=== PATIENT | female | born 1935 | race Caucasian/White ===

== ENCOUNTER 2016-05-08 20:47 | Emergency (ER) | payer OTHER ==
[~2016-05-08] VITALS: Ht 165.1 cm; Wt 70.0 kg
[~2016-05-08 20:47] MED LIST: EXEN5PEN SQ; FISH1000 PO; FLAXOIL; GLUCTAB PO; LEUTIN PO; LEVEMIR SQ; LOFI134C PO; METO100T PO; OXYC-360 PO; STOO100C PO; TAB-TAB PO; VITA100017 PO
[2016-05-08 20:50] VITALS: BP 151/66; PULSE 74; RESP 20; TEMP 98; O2SAT 97
[2016-05-08] MEDS ORDERED: ASPI81TA81 PO (21:05)
[2016-05-08] MEDS ORDERED: MULT1TAB46 PO (21:05)
[2016-05-08] MEDS ORDERED: NOVO7030P2 SQ (21:05)
[2016-05-08] MEDS ORDERED: NOVORP2 SQ (21:05)
[2016-05-08] MEDS ORDERED: CALC500T17 PO (21:05)
[2016-05-08] MEDS ORDERED: [UNRECOGNIZED DRUG - CODE] PO (21:05)
[2016-05-08] MEDS ORDERED: ENAL20TA PO (21:05)
[2016-05-08] MEDS ORDERED: ATOR20TA15 PO (21:06)
[2016-05-08] MEDS ORDERED: LATA0.002 EACH EYE (21:06)
[2016-05-08] MEDS ORDERED: TRAM50TA PO (21:06)
[2016-05-08] MEDS ORDERED: EYECAP PO (21:06)
[2016-05-08] MEDS ORDERED: MORPHINE SULFATE 4 MG/ML INJ IV PUSH ONE ×2 (21:30→23:00)
--- NOTE | 2016-05-08 22:17 | RADRPT ---
EXAM DATE/TIME: 05/08/2016 21:32 [facility] COMPARISON: No previous studies available for comparison. INDICATIONS : Trip and fall today; laceration to left forehead. RADIATION DOSE: 56.35 CTDIvol (mGy) MEDICAL HISTORY : Hypertension. Endometrial cancer. SURGICAL HISTORY : None. ENCOUNTER: Initial ACUITY: 1 day PAIN SCALE: 5/10 LOCATION: Left cranial TECHNIQUE: Multiple contiguous axial images were obtained of the head. Using automated exposure control and adj ustment of the mA and/or kV according to patient size, radiation dose was kept as low as reasonably a chievable to obtain optimal diagnostic quality images. FINDINGS: CEREBRUM: The ventricles are normal for age. No evidence of midline shift, mass lesion, hemorrhage or acute in farction. No extra-axial fluid collections are seen. POSTERIOR FOSSA: The cerebellum and brainstem are intact. The 4th ventricle is midline. The cerebellopontine angle i s unremarkable. EXTRACRANIAL: The visualized portion of the orbits is intact. SKULL: The calvaria is intact. No evidence of skull fracture. CONCLUSION: 1. No acute findings. Mild chronic white matter ischemic changes. Dev Ball MD on May 08, 2016 at 22:14 Board Certified Radiologist. This report was verified electronically.
--- NOTE | 2016-05-08 22:57 | RADRPT ---
EXAM DATE/TIME: 05/08/2016 21:44 [facility] COMPARISON: No previous studies available for comparison. INDICATIONS : Left hip pain post fall from standing height today MEDICAL HISTORY : None. SURGICAL HISTORY : None. ENCOUNTER: Initial ACUITY: 1 day PAIN SCORE: 5/10 LOCATION: Left entire hip FINDINGS: Examination of the left hip was performed with AP Pelvis. The primary and secondary trabecular patte rn of the femoral neck is intact. The hip joint is of normal width without significant sclerosis or bony hypertrophy. The acetabulum is grossly intact. CONCLUSION: 1. No acute findings. 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 Dev Ball MD on May 08, 2016 at 22:54 Board Certified Radiologist. This report was verified electronically.
--- NOTE | 2016-05-08 22:57 | RADRPT ---
EXAM DATE/TIME: 05/08/2016 21:46 [facility] COMPARISON: No previous studies available for comparison. INDICATIONS : Left shoulder pain post fall from standing height today MEDICAL HISTORY : None. SURGICAL HISTORY : None. ENCOUNTER: Initial ACUITY: 1 day PAIN SCORE: 10/10 LOCATION: Left shoulder FINDINGS: There is a mildly displaced comminuted fracture of the humeral neck extending into the humeral head a nd greater tuberosity. No dislocation. CONCLUSION: 1. Mildly comminuted and displaced proximal left humeral fracture without dislocation. Dev Ball MD on May 08, 2016 at 22:55 Board Certified Radiologist. This report was verified electronically.
--- NOTE | 2016-05-08 22:58 | RADRPT ---
EXAM DATE/TIME: 05/08/2016 21:50 [facility] COMPARISON: No previous studies available for comparison. INDICATIONS : Left proximal humerus pain post fall from standing height today MEDICAL HISTORY : None. SURGICAL HISTORY : None. ENCOUNTER: Initial ACUITY: 1 day PAIN SCORE: 10/10 LOCATION: Left proximal humerus FINDINGS: There is a mildly comminuted and displaced proximal left humeral fracture without dislocation. Mid an d distal humerus intact. CONCLUSION: 1. Proximal humeral fracture as above without dislocation. Dev Ball MD on May 08, 2016 at 22:56 Board Certified Radiologist. This report was verified electronically.
--- NOTE | 2016-05-08 22:59 | RADRPT ---
EXAM DATE/TIME: 05/08/2016 21:50 [facility] COMPARISON: No previous studies available for comparison. INDICATIONS : Left elbow pain post fall from standing height today MEDICAL HISTORY : None. SURGICAL HISTORY : None. ENCOUNTER: Initial ACUITY: 1 day PAIN SCORE: 10/10 LOCATION: Left entire elbow FINDINGS: Two view examination of the left elbow demonstrates no soft tissue swelling, joint effusion, fracture or dislocation. Bony mineralization is normal. CONCLUSION: 1. No acute findings. Dev Ball MD on May 08, 2016 at 22:57 Board Certified Radiologist. This report was verified electronically.
--- NOTE | 2016-05-08 23:01 | RADRPT ---
EXAM DATE/TIME: 05/08/2016 22:06 [facility] COMPARISON: No previous studies available for comparison. INDICATIONS : Trauma to right wrist post fall from standing height today MEDICAL HISTORY : None. SURGICAL HISTORY : None. ENCOUNTER: Initial ACUITY: 1 day PAIN SCORE: 0/10 LOCATION: Right wrist FINDINGS: Three view examination of the right wrist demonstrates no soft tissue swelling, dislocation, or fract ure. The carpal bones are in normal alignment. The joint spaces are maintained. Bony mineralizatio n is normal. CONCLUSION: Normal examination for a patient of this age. Dev Ball MD on May 08, 2016 at 22:59 Board Certified Radiologist. This report was verified electronically.
--- NOTE | 2016-05-08 23:05 | RADRPT ---
EXAM DATE/TIME: 05/08/2016 22:53 [facility] COMPARISON: No previous studies available for comparison. INDICATIONS : Left wrist pain post fall from standing height today MEDICAL HISTORY : None. SURGICAL HISTORY : None. ENCOUNTER: Initial ACUITY: 1 day PAIN SCORE: 7/10 LOCATION: Left entire wrist FINDINGS: There is a minimally displaced fracture of the radial styloid and a possible hairline nondisplaced in tra-articular fracture of the radius best seen on the lateral view. Distal ulna intact. No dislocatio n. CONCLUSION: 1. Minimally displaced radial styloid fracture with probable associated intra-articular fracture of t he distal radius that is nondisplaced. No dislocation. Dev Ball MD on May 08, 2016 at 23:02 Board Certified Radiologist. This report was verified electronically.
[2016-05-08] MEDS ORDERED: LIDOCAINE 1%/EPINEPHrine 1:100,000 SOLN 20 ML VIAL INFIL ONE (23:45)
[2016-05-09] MEDS ORDERED: MORPHINE SULFATE 4 MG/ML INJ IV PUSH ONE (00:45)
--- NOTE | 2016-05-09 00:57 | PD ---
HPI Chief Complaint: Fall Time Seen by Provider: 21:20 Travel History International Travel<30 days: No Contact w/Intl Traveler<30days: No Traveled to known affect area: No History of Present Illness HPI This is a 80-year-old female who presents to the emergency department having had a mechanical fall she was walking outside. She hit her head on the concrete. She did not lose consciousness but she does have a headache, moderate severity, constant, throbbing. She also reports severe pain to her left arm, worse with moving, improved with rest. She thinks she broke her left humerus in the remote past. PFSH Past Medical History Blood Disorders: No Anxiety: No Depression: No Heart Rhythm Problems: Yes (DURING ANESTHESIA) Cancer: Yes (ENDOMETRIAL) Cardiovascular Problems: Yes Chemotherapy: No Diabetes: Yes Patient Takes Glucophage: Yes Endocrine: Yes Genitourinary: No Hypertension: Yes Immune Disorder: No Musculoskeletal: No Neurologic: Yes Psychiatric: No Reproductive: No Respiratory: No Immunizations Current: Yes Radiation Therapy: No Thyroid Disease: No Tetanus Vaccination: Unknown Influenza Vaccination: Yes ?: Not Past Surgical History Abdominal Surgery: Yes (APPY,HERNIA BILAT INGUINAL) Appendectomy: Yes Gynecologic Surgery: Yes (TUBAL LIGATION) Hysterectomy: Yes Oral Surgery: Yes (T&A) Tonsillectomy: Yes Other Surgery: Yes Social History Alcohol Use: Yes (OCC) Tobacco Use: No Substance Use: No Allergies-Medications (Allergen,Severity, Reaction): Coded Allergies: No Known Allergies (Verified , 05/08/16) Reported Meds & Prescriptions Reported Meds & Active Scripts Active Reported Atorvastatin (Atorvastatin Calcium) 20 Mg Tab 20 Mg PO HS Tramadol (Tramadol HCl) 50 Mg Tab 50 Mg PO Q6H PRN Latanoprost Opth Drops (Latanoprost) 0.005% Drops 1 Drop EACH EYE HS Refrigerate until opened. Eye Vitamins (Multiple Vitamins W/ Minerals) 1 Cap 1 Cap PO BID Multi Vitamin Daily (Multiple Vitamin) 1 Tab Tab 1 Tab PO DAILY Fish Oil Extra Strength 1200 mg ([place]-3 Fatty Acids) 1 Cap Cap 1 Cap PO DAILY Calcium (Calcium Carbonate) 1,250 Mg Tab 1,250 Mg PO DAILY 1,250 mg calcium carbonate (500 mg elemental calcium) Aspir-81 (Aspirin) 81 Mg Tabdr 81 Mg PO DAILY Enalapril (Enalapril Maleate) 20 Mg Tab 20 Mg PO DAILY Novolin 70-30 Inj (Insulin Human Isoph/Insulin Regular) 1,000 Unit/10 Ml Vial 35 Units SQ BID Novolin R Inj (Insulin Human Regular) 1,000 Unit/10 Ml Vial 10 Units SQ BID Review of Systems Except as stated in HPI: all other systems reviewed are Neg Physical Exam Narrative GENERAL:Well appearing, no acute distress Skin: Stellate immediately above the left eyebrow HEAD: Atraumatic. Normocephalic. EYES: Pupils equal and round. No injection or drainage. ENT: Moist mucous membranes NECK: Trachea midline. CARDIOVASCULAR: Regular rate and rhythm. No murmur appreciated. 2+ left radial pulse with normal capillary refill. RESPIRATORY: Clear to auscultation. Breath sounds equal bilaterally. GASTROINTESTINAL: Abdomen soft, non-tender, nondistended. MUSCULOSKELETAL tender to palpation along the left proximal humerus as well as the wrist and the elbow NEUROLOGICAL: Awake and alert. No obvious cranial nerve deficits. Sensation and motor grossly intact in the median, ulnar and radial distributions of the left hand. PSYCHIATRIC: Appropriate mood and affect; insight and judgment normal. Data Data Last Documented VS Vital Signs Date Time Temp Pulse Resp B/P Pulse Ox O2 Delivery O2 Flow Rate FiO2 05/09/16 01:15 20 05/08/16 20:50 98.0 74 151/[address] Brain W/O Iv Contrast(Rout) (05/08/16 ) Humerus (Min 2vws) (05/08/16 ) Hip, Uni(Ap&Lat) W Ap Pelvis (05/08/16 ) Morphine Inj (Morphine Inj) (05/08/16 21:30) Wrist, Complete (Hie0zud) (05/08/16 ) Shoulder, Limited(2vws) (05/08/16 ) Elbow, Limited (Ap&Lat) (05/08/16 ) Morphine Inj (Morphine Inj) (05/08/16 23:00) Wrist, Limited (Ap&Lat) (05/08/16 ) Lidocai-Epi 1%-1:100,000 Inj (Xylocaine- (05/08/16 23:45) Morphine Inj (Morphine Inj) (05/09/16 00:45) MDM Medical Decision Making Medical Screen Exam Complete: Yes Emergency Medical Condition: Yes Interpretation(s) Afebrile, no tachycardia, hypertensive Mildly comminuted and displaced proximal left humeral fracture without dislocation Left wrist: Minimally displaced radial styloid fracture with probable intra- articular fracture of the distal radius, nondisplaced Differential Diagnosis Humerus fracture, elbow fracture, distal radius fracture, intracranial hemorrhage Narrative Course This is a 80-year-old female who presents to the emergency department having had a mechanical fall. She was placed on a monitor and an IV was established. She was found to have a proximal humerus fracture on the left as well as a radial styloid fracture and a likely distal radius fracture which is nondisplaced. She was splinted and placed in a sling and swath. Patient will follow-up with orthopedics. She also had a stellate laceration involving the left eyebrow that was repaired with Steri-Strips and Dermabond. Procedures Procedure Narrative Stellate laceration over the left eyebrow was cleansed and irrigated. It was repaired with Steri-Strips and Dermabond. Patient tolerated the procedure well. Diagnosis Primary Impression: Proximal humerus fracture Qualified Code: S42.295A - Other closed nondisplaced fracture of proximal end of left humerus, initial encounter Additional Impression: Distal radius fracture Qualified Code: S52.592A - Other closed fracture of distal end of left radius , initial encounter Referrals: Stew Ulloa MD Patient Instructions: General Instructions Additional Instructions: Your child has a wound that was repaired with glue. The glue film will fall off in 5-10 days. Exposure to water might make the glue fall off too soon. Call your doctor if the edges of the wound open or pull apart. Change your bandage daily until the glue film falls off. Keep the wound dry. Do not apply any ointments or creams over the film. You do not need to clean the wound. If it gets wet gently blot it dry with a soft towel. Do not soak or scrub the wound. If the wound develops increasing redness, pain, green or yellow discharge, swelling, foul odor, red streaks, or if your child develops a fever return to the emergency department. Med/Other Pt SpecificInfo: Prescription(s) given Scripts Hydrocodone-Acetaminophen (Lortab)5-325 Mg Tab1-2 Tab PO Q6H PRN (PAIN) #20 TAB Ref 0 Prov:Kristyn Hopson MD 05/09/16 Disposition: 01 DISCHARGE HOME Condition: Stable Kristyn Hopson MD May 09, 2016 00:56
[2016-05-09 01:15] VITALS: RESP 20
[2016-05-09] MEDS ORDERED: HYDR-3533 PO (01:26)
[2016-05-09] MEDS ORDERED: ACETAMINOPHEN/HYDROcodone 325 MG/5 MG TAB PO ONE (01:45)
== END 2016-05-09 02:30 | disposition home or self-care (01) ==
LOC: NEPC 20:47
DX: S42.295A Other nondisplaced fracture of upper end of left humerus, initial encounter for closed fracture (principal); S52.592A Other fractures of lower end of left radius, initial encounter for closed fracture; S01.112A Laceration without foreign body of left eyelid and periocular area, initial encounter; E11.9 Type 2 diabetes mellitus without complications; I10 Essential (primary) hypertension; Z85.42 Personal history of malignant neoplasm of other parts of uterus; Z86.79 Personal history of other diseases of the circulatory system; Z79.84 Long term (current) use of oral hypoglycemic drugs; Z86.69 Personal history of other diseases of the nervous system and sense organs; W18.39XA Other fall on same level, initial encounter; Y93.01 Activity, walking, marching and hiking
CPT/HCPCS: 12011; 29125; 70450; 73030; 73060; 73070; 73100; 73110; 73502; 96374; 96376; 99284; J2270

== ENCOUNTER 2016-05-14 12:32 | Emergency (ER) | payer OTHER ==
[~2016-05-14] VITALS: Ht 165.1 cm; Wt 71.0 kg
[~2016-05-14 12:32] MED LIST changes: +ASPI81TA81 PO; +ATOR20TA15 PO; +CALC500T17 PO; +ENAL20TA PO; -EXEN5PEN SQ; +EYECAP PO; -FISH1000 PO; -FLAXOIL; -GLUCTAB PO; +HYDR-3533 PO; +LATA0.002 EACH EYE; -LEUTIN PO; -LEVEMIR SQ; -LOFI134C PO; -METO100T PO; +MULT1TAB46 PO; +NOVO7030P2 SQ; +NOVORP2 SQ; -OXYC-360 PO; -STOO100C PO; -TAB-TAB PO; +TRAM50TA PO; -VITA100017 PO; +[UNRECOGNIZED DRUG - CODE] PO
[2016-05-14 12:36] VITALS: BP 132/61; PULSE 91; RESP 20; TEMP 97.4; O2SAT 93
== END 2016-05-14 17:13 | disposition left against medical advice (07) ==
LOC: NETRI 12:32
DX: S44 Injury of nerves at shoulder and upper arm level (principal); W19.XXXD Unspecified fall, subsequent encounter; Z53.21 Procedure and treatment not carried out due to patient leaving prior to being seen by health care provider
CPT/HCPCS: 99281